=== PATIENT | female | born 1960 | race Caucasian/White ===

== ENCOUNTER → 2017-03-08 | Outpatient (CLI) | payer BC, OTHER ==
[~2017-03-08] MED LIST: ASPIRIN PO; LISINOPRIL PO; LISINOPRIL-HCTZ1 T15 PO; ZOCOR20 MG PO
--- NOTE | ~2017-03-08 | MY11 ---
[facility] A Service of [facility] RADIOLOGY TEXT RESULTS PATIENT: DERIK VASQUEZ LOCATION: [facility] : 60 UNIT #: [id number] AGE: [address]: Naomi Do APRN SEX: F ORDER DR: [id number] [address] [id number] O MR#: [id number] Acc #: [id number] NAME: DERIK VASQUEZ : 1960 SEX: F STUDY DATE/TIME: 03/08/2017 13:14 UNIT: [facility] ROOM: STUDY DESCRIPTION: MY Mammogram Screening Dig Champ Attending Physician: Naomi Do A.P.R.N. Referring Physician: Naomi Do A.P.R.N. Ordering Physician: Naomi Do A.P.R.N. Primary Care Physician: Xenia Pearce M.D. MEDICAL IMAGING REPORT This report is preliminary unless electronic signature is present. EXAM Digital screening mammogram 03/08/2017 [facility] HISTORY 56-year-old woman, positive family history, paternal aunts. Annual screen. COMPARISON Mammograms date to 01/25/2008 with most recent screening comparison 03/06/2016 TECHNIQUE Digital imaging of each breast was completed utilizing a two-view examination of each breast in craniocaudal and mediolateral-oblique projections. Review and interpretation of digital mammograms include a second review in conjunction with FDA-approved CAD device. FINDINGS There is a normal parenchymal presentation bilaterally consistent with the patient's age. There are no breast masses imaged and no parenchymal asymmetry is visualized. There are no suspicious microcalcifications and I see no focal architectural disturbance. IMPRESSION Negative screening digital mammogram. One-year followup recommended. Patients over the age of 40 are entered into a reminder system with target due date for the next mammogram. A result letter will also be sent to the patient. BIRADS: 1 Negative [facility] A Service of [facility] RADIOLOGY TEXT RESULTS PATIENT: DERIK VASQUEZ LOCATION: [facility] : 60 UNIT #: [id number] AGE: [address]: Naomi Do APRN SEX: F ORDER DR: Dictated by... Vikram Jarquin M.D. THIS IS AN ELECTRONICALLY VERIFIED REPORT Vikram Jarquin M.D. at 03/08/2017 3:14 PM JBB/shar TD: 03/08/2017 14:18 JOB #: [id number] MEDICAL IMAGING REPORT Page 1 of 1
== END | disposition home or self-care (01) ==
LOC: SMAM 12:45
DX: Z12.31 Encounter for screening mammogram for malignant neoplasm of breast (principal); Z80.3 Family history of malignant neoplasm of breast
CPT/HCPCS: G0202